=== PATIENT | female | born 1945 | race Caucasian/White ===

== ENCOUNTER → 2016-04-27 | Outpatient (CLI) | payer OTHER ==
[~2016-04-27] MED LIST: ALLEGRA ALLERG180 MG PO; ALLEGRA-D 12 H1 EAC1; BIOTIN300 MCG PO; BIOTIN5 MG; CYMBALTA60 MG PO; DOXYCYCLINE HY100 M3 PO; GAS RELIEF80 MG; GAS-X180 MG PO; NAPRELAN500 M2 PO; NAPROSYN500 MG; NAPROSYN500 MG PO; NORCO 5-325 TA1 EACH PO; VITRON-C TABLE1 EAC1 PO; [UNRECOGNIZED DRUG - OTHER]
== END ==
LOC: RAD 02:44
DX: R51 Headache (principal)